=== PATIENT | male | born 1995 | race Hispanic/Latino ===

== ENCOUNTER 2020-09-17 09:15 | Emergency (ER) | payer OTHER ==
[~2020-09-17] VITALS: Ht 170.2 cm; Wt 68.0 kg
[2020-09-17 09:16] VITALS: BP 134/84
[2020-09-17 10:33] VITALS: BP 121/78
[2020-09-17] MEDS ORDERED: NAPR-1180 PO (12:15)
[2020-09-17 12:24] VITALS: BP 128/72
[2020-09-17] MEDS ORDERED: ESOM40CA PO (12:34)
== END 2020-09-17 12:42 | disposition home or self-care (01) ==
LOC: EDH 09:15
DX: M75.52 Bursitis of left shoulder (principal); R05 Cough; R11.10 Vomiting, unspecified; K21.9 Gastro-esophageal reflux disease without esophagitis
CPT/HCPCS: 71046

== ENCOUNTER 2020-12-03 19:19 | Emergency (ER) | payer OTHER ==
[~2020-12-03 19:19] MED LIST: ESOM40CA PO
[2020-12-03 19:50] VITALS: BP 132/74
[2020-12-03 19:59] LABS: APPEARANCE,URINE Clear (CLEAR); BILIRUBIN,URINE Negative (NEGATIVE); COLOR,URINE Yellow (YELLOW); GLUCOSE, URINE (UA) Negative (NEGATIVE); KETONES,URINE Negative (NEGATIVE); LEUKOCYTE ESTERASE ,URINE Negative (NEGATIVE); NITRATE,URINE Negative (NEGATIVE); OCCULT BLOOD,URINE Trace (NEGATIVE); PROTEIN,URINE Negative (NEGATIVE); UROBILINOGEN,URINE 0.2 mg/dL (0.2-1.0)
[2020-12-03 19:59] LABS: BASOPHILS % (AUTO) 1.5 % (0.0-5.0); EOSINOPHILS % (AUTO) 0.8 % (0.0-8.0); HEMATOCRIT 45.2 % (42-54); LYMPHOCYTES % (AUTO) 29.1 % (21.0-51.0); MEAN CORPUSCULAR HEMOGLOBIN 29.6 pg (27.0-33.0); MEAN CORPUSCULAR HGB CONC 34.3 g/dL (32.0-36.0); MEAN CORPUSCULAR VOLUME 86.4 fL (79-99); MONOCYTES % (AUTO) 4.4 % (3.0-13.0); PLATELET COUNT (AUTO) 221 K/uL (130-400); RED BLOOD CELL COUNT(AUTO) 5.23 MIL/uL (4.50-6.20); WHITE BLOOD COUNT (AUTO) 6.1 K/uL (4.8-10.8)
[2020-12-03] MEDS ORDERED: HALOPERIDOL INJ 5 MG/ML VIAL IM ONE (20:00)
[2020-12-03] MEDS ORDERED: DiphenhydrAMINE HCL 50 MG/ML VIAL IM ONE (20:00)
[2020-12-03] MEDS ORDERED: 0.9%NACL 1000ML 1,000 ML IV ONE (20:00)
[2020-12-03 20:06] LABS: BACTERIA,URINE None Seen /HPF (None Seen); MUCUS,URINE Few LPF (None Seen); SQUAMOUS EPITHELIAL CELL,UR Rare /HPF (0-2); WBC,URINE 0-1 /HPF (0-1)
[2020-12-03 20:07] LABS: AMPHET/METH SCREEN,URINE NEGATIVE (NEGATIVE); BARBITURATE SCREEN, URINE NEGATIVE (NEGATIVE); BENZODIAZEPINES SCREEN,URINE NEGATIVE (NEGATIVE); CANNABINOID SCREEN,URINE NEGATIVE (NEGATIVE); COCAINE SCREEN,URINE NEGATIVE (NEGATIVE); OPIATE SCREEN,URINE POSITIVE (NEGATIVE); PHENCYCLIDINE SCREEN,URINE NEGATIVE (NEGATIVE)
[2020-12-03 20:11] LABS: CARBON DIOXIDE 24 mmol/L (21-32); CHLORIDE 105 mmol/L (101-111); CREATININE 0.9 mg/dL (0.5-1.5); GLOMERULAR FILTR. RATE CALC 110 mL/min (>60); GLUCOSE,RANDOM 108 mg/dL (70-105); POTASSIUM 3.6 mmol/L (3.5-5.1); SODIUM SERUM 143 mmol/L (136-145); UREA NITROGEN, BLOOD 10 mg/dL (7-18)
[2020-12-03 20:23] LABS: ALANINE AMINOTRANSFERASE 56 U/L (12-78); ALBUMIN 4.3 g/dL (3.5-5.0); ALCOHOL, BLOOD 63 mg/dL (0-10); ASPARTATE AMINOTRANSFERASE 35 U/L (10-37); BILIRUBIN,TOTAL 0.3 mg/dL (0.2-1.0); SALICYLATE < 2.8 mg/dL (2.8-20.0); TOTAL PROTEIN, SERUM 7.8 g/dL (6.0-8.3)
[2020-12-03 20:24] LABS: ACETAMINOPHEN < 1 mcg/mL (10-29)
[2020-12-03 22:54] VITALS: BP 122/56
== END 2020-12-03 22:54 | disposition home or self-care (01) ==
LOC: EDH 19:19
DX: R51.9 Headache, unspecified (principal); R55 Syncope and collapse; F10.10 Alcohol abuse, uncomplicated
CPT/HCPCS: 36415; 70450; 80053; 80305; 81001; 85025; 93005; 99285; G0481

== ENCOUNTER 2022-08-11 07:30 | Emergency (ER) | payer OTHER ==
[~2022-08-11] VITALS: Ht 170.2 cm; Wt 67.1 kg
[2022-08-11] MEDS ORDERED: D-ME118S47 PO (08:43)
[2022-08-11] MEDS ORDERED: IBUP-2070 PO (08:43)
[2022-08-11] MEDS ORDERED: DEXAMETHASONE 4 MG TAB PO SCH (09:00)
[2022-08-11 09:08] VITALS: BP 131/72
== END 2022-08-11 09:11 | disposition home or self-care (01) ==
LOC: EDH 07:30
DX: J06.9 Acute upper respiratory infection, unspecified (principal); Z20.822 Contact with and (suspected) exposure to COVID-19
CPT/HCPCS: 99283; 87635; 87880; 87804 ×2; C9803

== ENCOUNTER 2023-10-09 17:35 | Emergency (ER) | payer BC ==
[~2023-10-09] VITALS: Ht 170.2 cm; Wt 68.0 kg
[~2023-10-09 17:35] MED LIST changes: +BROM118S48 PO; +IBUP-2070 PO
[2023-10-09 18:15] LABS: BASOPHILS % (AUTO) 1.4 % (0.0-5.0); EOSINOPHILS # (AUTO) 0.09 K/uL (0.00-0.70); EOSINOPHILS % (AUTO) 1.3 % (0.0-8.0); HEMATOCRIT 45.1 % (42-54); IMMATURE GRANULOCYTE ABSOLUTE 0.02 K/uL (0-1); LYMPHOCYTES # (AUTO) 2.1 K/uL (1.0-4.8); LYMPHOCYTES % (AUTO) 28.9 % (21.0-51.0); MEAN CORPUSCULAR HGB CONC 34.6 g/dL (32.0-36.0); MEAN CORPUSCULAR VOLUME 83.8 fL (79-99); MONOCYTES # (AUTO) 0.2 K/uL (0.1-1.0); MONOCYTES % (AUTO) 3.4 % (3.0-13.0); NEUTROPHILS # (AUTO) 4.6 K/uL (1.8-7.7); NEUTROPHILS % (AUTO) 64.7 % (40.0-77.0); PLATELET COUNT (AUTO) 244 K/uL (130-400); RED BLOOD CELL COUNT(AUTO) 5.38 MIL/uL (4.50-6.20); RED CELL DISTRIBUTION WIDTH 13.1 % (11.0-15.5); WHITE BLOOD COUNT (AUTO) 7.1 K/uL (4.8-10.8)
[2023-10-09 18:26] LABS: CREATININE 1.1 mg/dL (0.5-1.3); POTASSIUM 4.4 mmol/L (3.5-5.1)
[2023-10-09 18:30] LABS: ALBUMIN 4.1 g/dL (3.5-5.0); BILIRUBIN,TOTAL 0.4 mg/dL (0.2-1.0); TOTAL PROTEIN, SERUM 7.7 g/dL (6.0-8.3)
[2023-10-09 18:53] VITALS: BP 141/78; PULSE 71; RESP 18; O2SAT 100
[2023-10-09 19:14] LABS: APPEARANCE,URINE CLEAR (CLEAR); BILIRUBIN,URINE NEGATIVE (NEGATIVE); COLOR,URINE LIGHT-YELLOW (YELLOW); GLUCOSE, URINE (UA) NEGATIVE (NEGATIVE); KETONES,URINE NEGATIVE (NEGATIVE); LEUKOCYTE ESTERASE ,URINE NEGATIVE Leu/uL (NEGATIVE); NITRATE,URINE NEGATIVE (NEGATIVE); OCCULT BLOOD,URINE SMALL (NEGATIVE); PH,URINE 5.5 (5.0-8.0); PROTEIN,URINE NEGATIVE (NEGATIVE); UROBILINOGEN,URINE 0.2 mg/dL (0.2-1.0)
[2023-10-09 19:18] LABS: ADD UA MICROSCOPIC YES
[2023-10-09 19:21] LABS: AMPHET/METH SCREEN,URINE NEGATIVE (NEGATIVE); BARBITURATE SCREEN, URINE NEGATIVE (NEGATIVE); BENZODIAZEPINES SCREEN,URINE NEGATIVE (NEGATIVE); CANNABINOID SCREEN,URINE POSITIVE (NEGATIVE); COCAINE SCREEN,URINE NEGATIVE (NEGATIVE); OPIATE SCREEN,URINE NEGATIVE (NEGATIVE); PHENCYCLIDINE SCREEN,URINE NEGATIVE (NEGATIVE)
[2023-10-09 19:22] LABS: BACTERIA,URINE None Seen /HPF (None Seen)
[2023-10-09 19:23] LABS: SQUAMOUS EPITHELIAL CELL,UR Rare /HPF (0-2); WBC,URINE 0-1 /HPF (0-1)
== END 2023-10-09 19:43 | disposition home or self-care (01) ==
LOC: EDH 17:35
DX: R55 Syncope and collapse (principal); F12.10 Cannabis abuse, uncomplicated; Z79.899 Other long term (current) drug therapy; Z98.890 Other specified postprocedural states
CPT/HCPCS: 36415; 80053; 80305; 81001; 85025; 93005

== ENCOUNTER 2024-12-25 16:08 | Emergency (ER) | payer OTHER ==
[~2024-12-25] VITALS: Ht 172.7 cm; Wt 70.3 kg
[~2024-12-25 16:08] MED LIST changes: +IBUP-1492 PO; -IBUP-2070 PO
[2024-12-25] MEDS ORDERED: FIORIT PO (16:20)
--- NOTE | 2024-12-25 16:22 | ERN ---
ED Note History of Present Illness Stated Complaint: HEADACHES Chief Complaint: Headache Time Seen by MD: 16:11 Dictation: PATIENT IS A 29-YEAR-OLD MALE HERE WITH COMPLAINTS OF A INTERMITTENT OCCIPITAL HEADACHE THAT RADIATES DOWN HIS NECK FOR THE LAST WEEK. HE DENIES FEVER CHILLS NAUSEA VOMITING. NO VISION CHANGES. STATES HE HAS HAD NO HEAD TRAUMA. HE HAS A AN APPOINTMENT WITH THE DOCTOR NEXT 1-2 DAYS. PATIENT IS ALERT AND ORIENTED X4 SPEECH IS CLEAR NIH IS 0. TOOK TYLENOL THIS MORNING A SINGLE TABLET Allergies: Coded Allergies: No Known Allergies (Unverified Allergy, 07/26/12) Home Meds Active Scripts Butalb/Acetaminophen/Caffeine (Fioricet) 50 Mg-325 Mg-40 Mg Tab, 2 TAB PO Q4HPRN PRN for HEADACHE, #12 TAB TWO TABLETS BY MOUTH EVERY 4 HOURS P.R.N. HEADACHE, MAXIMUM SIX TABLETS IN 24 HOURS Prov:ROXANNE MYERS [employer] APPRENTICE 12/25/24 Ibuprofen (Ibuprofen) 600 Mg Tablet, 600 MG PO Q6H PRN for PAIN, #30 TAB Prov:FELA CABRERA MD 08/11/22 D-Methorphan Hb/P-Epd HCl/Bpm (Bromfed Dm Cough Syrup) 118 Ml Syrup, 10 ML PO QID for cough/cold symptoms, #120 ML Prov:FELA CABRERA MD 08/11/22 Esomeprazole Magnesium (Nexium) 40 Mg Capsule.dr, 40 MG PO DAILY, #30 CAP Prov:DEYA MARR MD 09/17/20 Past Medical History Past Medical History: No Pertinent History Surgical History: None Surgical History Other: LT LEG SX Family History: Negative Social History: ETOH RN Note Reviewed/Agreed w/PFSH: Yes Review of System Dictation CONSTITUTIONAL: NEGATIVE EXCEPT FOR HPI HEAD/FACE: NEGATIVE EXCEPT FOR HPI EENT: NEGATIVE EXCEPT FOR HPI RESPIRATORY: NEGATIVE EXCEPT FOR HPI GASTROINTESTINAL/ABDOMINAL: NEGATIVE EXCEPT FOR HPI GENITOURINARY: NEGATIVE EXCEPT FOR HPI MUSCULOSKELETAL: NEGATIVE EXCEPT FOR HPI INTEGUMENTARY: NEGATIVE EXCEPT FOR HPI NEUROLOGICAL/PSYCH: NEGATIVE EXCEPT FOR HPI OCCIPITAL HEADACHE HEMATOLOGIC/LYMPHATIC: NEGATIVE EXCEPT FOR HPI ALL SYSTEMS NEGATIVE, EXCEPT NOTED ABOVE. 13 POINT REVIEW OF SYSTEMS ASSESSED AND ALL NEGATIVE EXCEPT FOR ABOVE. Initial Vital Sign VS Vital Signs Date Time Temp Pulse Resp B/P (MAP) Pulse Ox O2 Delivery O2 Flow Rate FiO2 12/25/24 16:10 99.1 90 17 131/77 99 Room Air 0 12/25/24 16:25 21 Physical Exam Dictation VITAL SIGNS REVIEWED GENERAL APPEARANCE: ALERT, ORIENTED X 3, MILD ACUTE DISTRESS, WELL DEVELOPED, NOURISHED. HEAD AND FACE: NON-TRAUMATIC. EYES: PERRL, PINK CONJUNCTIVAS, EYELID NO TRAUMA, ANTERIOR CHAMBER WITH ARCUS SENILIS. EARS: PINNAS INTACT AND NO SIGNS OF TRAUMA OR ERYTHEMA EAR CANALS CLEAR AND NO DISCHARGE TM NO ERYTHEMA NOSE: NO DISCHARGE, NO BLEEDING. OROPHARYNX: MOUTH NORMAL, TONGUE PINK, PHARYNX CLEAR,NO ERYTHEMA, TONSILS NO EXUDATES, NO ABSCESSES NOTED, MUCOUS MEMBRANE MOIST NECK: SUPPLE, NON-TENDER, NO THYROMEGALY, NO MASSES, NO JVD, NO BRUITS BREAST:DEFERRED CHEST:NO TENDERNESS, NO CREPITUS, NO PARADOXICAL MOVEMENT, NO RETRACTIONS LUNGS:CLEAR, WELL-VENTILATED, SYMMETRIC, NO RALES, NO WHEEZING, NO RHONCHI, NO STRIDOR, GOOD BREATH SOUNDS BILATERALLY HEART: REGULAR RATE, REGULAR RHYTHM, NO MURMUR, NO GALLOPS VASCULAR: NO PERIPHERAL EDEMA, ABDOMEN: SOFT, POSITIVE BOWEL SOUNDS, NONDISTENDED, NO GUARDING, NONTENDER, NO REBOUND, NO MASSES NO HEPATOMEGALY, NO SPLENOMEGALY, NO QUINONES'S SIGN, NO HERNIAS. RECTAL: DEFERRED GENITAL: DEFERRED NEUROLOGICAL: NORMAL SPEECH, MOTOR FUNCTION INTACT, SENSORY FUNCTION INTACT NIH IS 0 MUSCULOSKELETAL: NECK NONTENDER, FULL RANGE OF MOTION, BACK NONTENDER, FULL RANGE OF MOTION, EXTREMITIES: NONTENDER, FULL RANGE OF MOTION SKIN: COLOR PINK, DRY, NO TURGOR, NO RASH, NO LACERATIONS, NO ABRASIONS, NO CONTUSIONS. LYMPHATIC: DEFERRED Results (Laboratory/Radiology) Labs Reviewed?: Yes ED Course ED Course Orders Procedure Category Date Status Time Ibuprofen 800 Mg Tab PHA 12/25/24 Complete (Motrin) 16:30 Dexamethasone 4mg/Ml PHA 12/25/24 Complete 1ml Vial (Dexametha 16:30 Current Medications Medications (Trade) Dose Ordered Sig/Cruz Route PRN Reason Start Time Stop Time Status Last Admin Dose Admin Dexamethasone Sodium Phosphate (dexaMETHasone 4MG/ML 1ML VIAL) 8 mg ONCE ONCE IM 12/25/24 16:30 12/25/24 16:31 DC 12/25/24 16:32 Ibuprofen (moTRIN) 800 mg ONCE ONCE PO 12/25/24 16:30 12/25/24 16:31 DC 12/25/24 16:33 Vital Signs Date Time Temp Pulse Resp B/P (MAP) Pulse Ox O2 Delivery O2 Flow Rate FiO2 12/25/24 16:25 98.2 81 18 127/74 99 Room Air* 0 21 12/25/24 16:10 99.1 90 17 131/77 99 Room Air 0 1615/PATIENT WILL BE TREATED EMPIRICALLY FOR AN ACUTE TENSION HEADACHE. HE WILL BE SENT HOME WITH IBUPROFEN AND FLEXERIL TOLD TO SEE HIS PRIMARY CARE DOCTOR Medical Decision Making MDM MEDICAL DECISION-MAKING BASED ON EMPIRIC TREATMENT FOR AN ACUTE TENSION HEADACHE. PATIENT GIVEN DECADRON AND MOTRIN P.O. DISCHARGED HOME WITH IBUPROFEN AND FLEXERIL TO TAKE AT NIGHT SEE HIS PRIMARY CARE DOCTOR IN THE NEXT 1-2 DAYS DX & DISP Disposition: Discharge Departure Impression: Primary Impression: Acute tension headache Condition: Stable Scripts Butalb/Acetaminophen/Caffeine (Fioricet) 50 Mg-325 Mg-40 Mg Tab 2 TAB PO Q4HPRN PRN for HEADACHE, #12 TAB TWO TABLETS BY MOUTH EVERY 4 HOURS P.R.N. HEADACHE, MAXIMUM SIX TABLETS IN 24 HOURS Prov: ROXANNE MYERS [employer] APPRENTICE 12/25/24 Additional Instructions: Follow-up with primary care provider in 1 to 2 days. Take medications as directed here in the emergency room. Okay to continue home medications unless otherwise discussed during your visit in the emergency room today. Return to your nearest emergency room if symptoms worsen or if there is no improvement. Call 911 if you need immediate assistance. Take Tylenol or Motrin [id number] as needed and if no contraindications are present. Increase oral hydration. A wound culture or urine culture was ordered here in the emergency room department please follow-up with primary care provider and advise them to get repeat ports from our facility. If you had any Syd wrap/splints that were applied here, please do not remove them until you see your primary care or specialty. Take Fioricet as directed for your headache. Diet and activity as tolerated, see your primary care doctor for follow up and management in the next 1-2 days. Referrals: SELF,REFERRAL (PCP) Time of Disposition: 16:19 I have reviewed the case, and I agree with, Diagnosis and Plan ROXANNE MYERSP Dec 25, 2024 16:22 MILLIE ROPER DO Dec 25, 2024 19:28
[2024-12-25 16:25] VITALS: BP 127/74; PULSE 81; RESP 18; TEMP 98.2; O2SAT 99
== END 2024-12-25 16:46 | disposition home or self-care (01) ==
LOC: EDH 16:08
DX: G44.209 Tension-type headache, unspecified, not intractable (principal); Z79.899 Other long term (current) drug therapy
CPT/HCPCS: 99283; 96372; J1100